=== PATIENT | male | born 1945 | race Caucasian/White ===

== ENCOUNTER 2017-09-24 05:59 | Day surgery (SDC) | payer MEDICARE, BC ==
[~2017-09-24] VITALS: Ht 177.8 cm; Wt 100.0 kg
[2017-09-24] MEDS ORDERED: fentaNYL/PF 50MCG/1 ML 2ML syringe ONE (06:34)
[2017-09-24] MEDS ORDERED: MIDAZolam 5mg/5ml vial ONE (06:34)
[2017-09-24] MEDS ORDERED: LIDOcaine Viscous 15ml cup ONE (06:35)
[2017-09-24] MEDS ORDERED: ATOR40TA PO (06:40)
[2017-09-24] MEDS ORDERED: METF500T PO (06:40)
[2017-09-24] MEDS ORDERED: ASPI-1053 PO (06:40)
[2017-09-24] MEDS ORDERED: SYN0.088T PO (06:47)
[2017-09-24 07:04] VITALS: BP 115/90
[2017-09-24 08:40] VITALS: BP 119/74
[2017-09-24 08:50] VITALS: BP 115/76
[2017-09-24 09:00] VITALS: BP 115/78
[2017-09-24 09:10] VITALS: BP 111/67
== END 2017-09-24 09:28 | disposition home or self-care (01) ==
LOC: GI LAB 05:59
PROVIDERS: ATTEND Internal Medicine Gastroenterology
DX: K63.89 Other specified diseases of intestine (principal); K21.0 Gastro-esophageal reflux disease with esophagitis; K44.9 Diaphragmatic hernia without obstruction or gangrene; K29.50 Unspecified chronic gastritis without bleeding; E78.5 Hyperlipidemia, unspecified; E03.9 Hypothyroidism, unspecified; E11.9 Type 2 diabetes mellitus without complications; Z86.010 Personal history of colon polyps; Z95.5 Presence of coronary angioplasty implant and graft; Z87.891 Personal history of nicotine dependence; Z90.89 Acquired absence of other organs; Z96.651 Presence of right artificial knee joint; Z79.82 Long term (current) use of aspirin; Z79.84 Long term (current) use of oral hypoglycemic drugs; Z86.74 Personal history of sudden cardiac arrest; Z79.899 Other long term (current) drug therapy
CPT/HCPCS: 43239; 45378; 99153; G0500; J2250; J3010; J7030; A4620